=== PATIENT | male | born 1975 | race Hispanic/Latino ===

== ENCOUNTER 2020-03-08 20:25 | Emergency (ER) | payer OTHER ==
[~2020-03-08] VITALS: Ht 175.3 cm; Wt 72.6 kg
[2020-03-08] MEDS ORDERED: NAPROXEN500 MG PO (21:00)
[2020-03-08] MEDS ORDERED: CRUTCH1 EACH MISC (21:02)
== END 2020-03-08 21:47 | disposition home or self-care (01) ==
LOC: ED 20:25
DX: S80.11XA Contusion of right lower leg, initial encounter (principal); S00.00XA Unspecified superficial injury of scalp, initial encounter; F17.200 Nicotine dependence, unspecified, uncomplicated; V80.010A Animal-rider injured by fall from or being thrown from horse in noncollision accident, initial encounter
CPT/HCPCS: 73590; 99283-25

== ENCOUNTER 2020-07-25 00:28 | Emergency (ER) | payer OTHER ==
[~2020-07-25] VITALS: Ht 175.3 cm; Wt 72.6 kg
[~2020-07-25 00:28] MED LIST: CRUTCH1 EACH MISC; NAPROXEN500 MG PO
== END 2020-07-25 02:30 | disposition home or self-care (01) ==
LOC: ED 00:28
DX: T71.162A Asphyxiation due to hanging, intentional self-harm, initial encounter (principal); S00.83XA Contusion of other part of head, initial encounter; S80.01XA Contusion of right knee, initial encounter; S10.93XA Contusion of unspecified part of neck, initial encounter; F17.200 Nicotine dependence, unspecified, uncomplicated
CPT/HCPCS: 70450; 70491; 73560; 80053; 80176; 81001; 84443; 85025; 99285-25; J7030; Q9967

== ENCOUNTER 2020-08-07 08:55 | Emergency (ER) | payer OTHER ==
[~2020-08-07] VITALS: Ht 175.3 cm; Wt 72.6 kg
--- OUTSIDE RECORDS SUMMARY | 2020-08-07 08:58 | XMS ---
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 Jackelyn has no Care Guidelines for this patient. [place] [facility] MO[facility] NOTE: Visits indicate total known visits. ED/C VISIT TRACKING (12 MO.) [facility] COMPLAINT: - L ANKLE INJURY 07/25/2020 00:29 [facility] [place] TYPE: Emergency COMPLAINT: - MEDICAL CLEARANCE DIAGNOSES: - Contusion of right knee, initial encounter - Contusion of other part of head, initial encounter - Contusion of unspecified part of neck, initial encounter - Asphyxiation due to hanging, intentional self-harm, initial encounter - Nicotine dependence, unspecified, uncomplicated 03/08/2020 20:26 [facility] [place] TYPE: Emergency COMPLAINT: - FALL DIAGNOSES: - Animal-rider injured by fall from or being thrown from horse in noncollision accident, initial encounter - Unspecified superficial injury of scalp, initial encounter - Pain in right lower leg - Nicotine dependence, unspecified, uncomplicated - Contusion of right lower leg, initial encounter INPATIENT VISIT TRACKING (12 MO.) No inpatient visits to display in this time frame [email or web address]
== END 2020-08-07 11:00 | disposition home or self-care (01) ==
LOC: ED 08:55
DX: S93.602A Unspecified sprain of left foot, initial encounter (principal); W22.8XXA Striking against or struck by other objects, initial encounter; F17.200 Nicotine dependence, unspecified, uncomplicated
CPT/HCPCS: 73610; 73630; 99283-25